=== PATIENT | female | born 1950 | race Caucasian/White ===

== ENCOUNTER → 2017-04-17 | Outpatient (CLI) | payer OTHER | END | disposition home or self-care (01) | LOC: CFH 12:23 | PROVIDERS: ATTEND Family Medicine | DX: Z12.31 Encounter for screening mammogram for malignant neoplasm of breast (principal); Z13.820 Encounter for screening for osteoporosis; N83.299 Other ovarian cyst, unspecified side; E04.2 Nontoxic multinodular goiter; M85.89 Other specified disorders of bone density and structure, multiple sites | CPT/HCPCS: 76536; 76856; 77080; G0202 ==

== ENCOUNTER → 2018-06-17 | Outpatient (CLI) | payer MEDICARE | END | disposition home or self-care (01) | LOC: CFH 10:09 | PROVIDERS: ATTEND Internal Medicine | DX: Z12.31 Encounter for screening mammogram for malignant neoplasm of breast (principal); E04.2 Nontoxic multinodular goiter; N95.9 Unspecified menopausal and perimenopausal disorder; C56.9 Malignant neoplasm of unspecified ovary; E03.2 Hypothyroidism due to medicaments and other exogenous substances; Z80.3 Family history of malignant neoplasm of breast; Z80.41 Family history of malignant neoplasm of ovary | CPT/HCPCS: 76536; 76830; 77067 ==

== ENCOUNTER 2019-06-03 07:08 | Outpatient (CLI) | payer MEDICARE | END 2019-06-03 23:59 | disposition home or self-care (01) | LOC: CFH 07:08 | PROVIDERS: ATTEND Family Medicine | DX: K82.4 Cholesterolosis of gallbladder (principal) | CPT/HCPCS: 76705 ==

== ENCOUNTER → 2021-01-31 | Outpatient (CLI) | payer MEDICARE | END | disposition home or self-care (01) | LOC: LAB 13:05 | PROVIDERS: ATTEND Internal Medicine Cardiovascular Disease | DX: I10 Essential (primary) hypertension (principal); E03.9 Hypothyroidism, unspecified; B02.9 Zoster without complications; E04.2 Nontoxic multinodular goiter; E78.5 Hyperlipidemia, unspecified; J30.9 Allergic rhinitis, unspecified; J32.9 Chronic sinusitis, unspecified; M51.36 Other intervertebral disc degeneration, lumbar region; M54.2 Cervicalgia; M54.30 Sciatica, unspecified side | CPT/HCPCS: 36415; 86787 ==

== ENCOUNTER → 2021-02-08 | Outpatient (CLI) | payer MEDICARE | END | disposition home or self-care (01) | LOC: CFH 14:43 | PROVIDERS: ATTEND Internal Medicine Cardiovascular Disease | DX: I37.1 Nonrheumatic pulmonary valve insufficiency (principal); I10 Essential (primary) hypertension; E78.5 Hyperlipidemia, unspecified | CPT/HCPCS: 93306 ==

== ENCOUNTER 2021-08-07 12:04 | Outpatient (CLI) | payer MEDICARE | END 2021-08-07 23:59 | disposition home or self-care (01) | LOC: CFH 12:04 | PROVIDERS: ATTEND Family Medicine | DX: Z12.31 Encounter for screening mammogram for malignant neoplasm of breast (principal); E04.2 Nontoxic multinodular goiter | CPT/HCPCS: 76536; 77063; 77067 ==